=== PATIENT | female | born 1990 | race African-American/Black ===

== ENCOUNTER 2017-01-26 06:55 | Inpatient (IN) | payer OTHER ==
--- NOTE | ~2017-01-26 | DS ---
Unit #: [id number] #: [id number] Patient: ADOLFO RILEY [id number] [facility] [address] [place] [address] [id number] MR#: [id number] NAME: ADOLFO RILEY ROOM: [facility] Age: 26 Sex: F Admission Date: 01/26/2017 : 1990 Discharge Date: 01/30/2017 Attending Physician: Mark Carbone M.D. Primary Care Physician: Generic Doctor Not In System DISCHARGE SUMMARY REASON FOR ADMISSION Suicidal ideation and overdose. DIAGNOSTIC STUDIES LABORATORY RESULTS: Unremarkable. HOSPITAL COURSE The patient was admitted to inpatient unit on 01/26/2017 and discharged on 01/30/2017. The patient was treated on the inpatient unit with chemical dependency group, psychoeducation, psychotherapy, and structured milieu. The patient was responsive to treatment, showed improvement in mood and affect. Subsequently, the patient was discharged with a plan to follow up in outpatient program. DISCHARGE MEDICATIONS Desyrel 50 mg at bedtime for sleep, Risperdal 2 mg at bedtime for psychosis and mood stabilization, Depakote 500 mg at bedtime for depression, and Depakote 500 mg b.i.d. for mood stabilization. DISCHARGE DIAGNOSES Psychiatric: Bipolar mood disorder, recurrent, severe, depressed with psychotic feature, F31.9. Secondary diagnosis: Deferred. Medical diagnosis: Recent overdose of Geodon. Stressors: Psychosocial stressors. DISCHARGE INSTRUCTIONS The patient to follow up in outpatient clinic as per health and social care teacher. CONDITION ON DISCHARGE The patient was pleasant and cooperative. Denied any psychotic symptom or any suicidal ideation. PROGNOSIS Guarded. DIET AND ACTIVITY As tolerated. Unit #: [id number] #: [id number] Patient: ADOLFO RILEY Dictated by... Jaxson Brito/austin TD: 01/30/2017 21:02 JOB #: [id number] DISCHARGE SUMMARY Page 1 of 1 X Mark Carbone MD DISCHARGE SUMMARY
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
--- NOTE | ~2017-01-26 | PN ---
Unit #: [id number] #: [id number] Patient: ADOLFO RILEY [id number] [facility] [address] [place] [address] [id number] MR#: [id number] NAME: ADOLFO RILEY ROOM: P256 Age: 26 Sex: F Admission Date: 01/26/2017 : 1990 Attending Physician: Mark Carbone M.D. Admitting Physician: Mark Carbone M.D. Primary Care Physician: Generic Doctor Not In System [facility] PROGRESS NOTES DATE 01/29/2017 DISCUSSION Ms. Barnes is a 26-year-old female, seen on 01/29/2017. The patient interviewed, chart reviewed, and obtained information from the nursing staff. The patient reports that she was on Depakote and would like to go on that medication, help with mood stabilization. The patient denied any thoughts of harming self or others, denied any psychotic symptoms. REVIEW OF SYSTEMS Complete review of systems unremarkable. MENTAL STATUS EXAMINATION General appearance: Patient dressed casually. Attention span and concentration, fair. Oriented in time, place, and person. Mood and affect, sad and dysphoric. Speech, monotone. Thought process, concrete. The patient denied any thoughts of harming self or others. Recent and remote memory, poor. Insight and judgment, poor. DIAGNOSIS Bipolar mood disorder, NOS. ASSESSMENT/PLAN Advised to continue with the current combination of Zoloft, Risperdal, and trazodone, advised Depakote 500 mg b.i.d., if needed consider further adjustment of medication. Dictated by... Jaxson Brito/vincenzo TD: 01/31/2017 05:49 JOB #: [id number] Unit #: [id number] #: [id number] Patient: ADOLFO RILEY [facility] PROGRESS NOTES Page 1 of 1 X Mark Carbone MD PROGRESS NOTE
--- NOTE | ~2017-01-26 | HP ---
Unit #: [id number] #: [id number] Patient: ADOLOF RILEY [id number] [facility] [address] [place] [address] [id number] MR#: [id number] NAME: ADOLFO RILEY ROOM: P256 Age: 26 Sex: F Admission Date: 01/26/2017 : 1990 Attending Physician: Mark Carbone M.D. Admitting Physician: Mark Carbone M.D. Primary Care Physician: Generic Doctor Not In System HISTORY AND PHYSICAL HISTORY OF PRESENT ILLNESS Adolfo is a 26 year old admitted to [address] [place] [address] with depression and after an alleged overdose of Geodon. She was treated in a local emergency room and then transferred to [facility] for psychiatric care. PAST MEDICAL HISTORY Obesity. PAST SURGICAL HISTORY Nothing reported. ALLERGIES Latex. SOCIAL HISTORY It is unclear if she smokes or uses alcohol. She does have a history of illicit drug use to include marijuana and cocaine. FAMILY HISTORY Medically not known. REVIEW OF SYSTEMS She does not answer questions appropriately. CURRENT MEDICATIONS 1. Milk of Magnesia p.r.n. 2. Maalox p.r.n. 3. Tylenol p.r.n. PHYSICAL EXAMINATION GENERAL: Alert, obese, in no apparent distress. VITAL SIGNS: Blood pressure 132/90, heart rate 72, respirations 16, temperature 98.6. WEIGHT: 170. HEIGHT: 5 feet 0 inches. SKIN: Warm and dry without rash or lesion. HEENT: Normocephalic. TMs not viewed. Oral and nasal passages clear. Conjunctivae clear. PERRLA. EOMs intact. NECK: Supple without lymphadenopathy or thyromegaly. HEART: Regular rate and rhythm without murmur. LUNGS: Clear. ABDOMEN: Soft, nontender. : Not done. Unit #: [id number] #: [id number] Patient: ADOLFO RILEY EXTREMITIES: No evidence of cyanosis, clubbing or edema. Moves all without focal deficit. NEUROLOGICAL: Unable to complete extended exam. She does move all extremities without focal deficit. Hand performance improvement consultant is equal and gait is normal. IMPRESSION Psychiatric admission. RECOMMENDATIONS PSYCHIATRIC: Per psychiatrist. MEDICAL: See no contraindications to participate in facility's activities. MEDICAL PROGNOSIS Good. MEDICAL CONDITION Stable. Dictated by... Georgina Bynum P.A.-C. for Jaxson Peterson/vinay TD: 01/26/2017 18:03 JOB #: [id number] HISTORY AND PHYSICAL Page 1 of 1 X Georgina Bynum X HISTORY AND PHYSICAL
--- NOTE | ~2017-01-26 | PN ---
Unit #: [id number] #: [id number] Patient: ADOLFO RILEY [id number] [facility] [address] [place] [address] [id number] I MR#: [id number] NAME: ADOLFO RILEY ROOM: P256 Age: 26 Sex: F Admission Date: 01/26/2017 : 1990 Attending Physician: Mark Carbone M.D. Admitting Physician: Jaxson Brito PROGRESS NOTES DATE OF SERVICE: 01/28/2017 DISCUSSION Ms. Daniels is a 26-year-old female. The patient interviewed, chart reviewed, and obtained information from nursing staff. The patient was compliant and cooperative. Mood was sad, dysphoric, but able to contract for safety. The patient reports that she is feeling ready to go. Vital signs stable; temperature 98.6, pulse 74, and blood pressure 147/104. Complete review of systems unremarkable. MENTAL STATUS EXAMINATION General appearance, the patient dressed casually. Attention span and concentration, fair. Oriented in place and person. Mood and affect, labile. Speech, regular rate. Thought process, goal directed. The patient denied any thoughts of harming self or others, but somewhat guarded. Denied any hallucination. Recent and remote memory, poor. Insight and judgment, poor. DIAGNOSIS Bipolar mood disorder, not otherwise specified. ASSESSMENT AND PLAN Advised to start the patient on Risperdal 2 mg at bedtime, Zoloft 100 mg daily, and trazodone 50 mg at bedtime. Dictated by... Jaxson Brito/austin TD: 01/30/2017 01:22 JOB #: [id number] Unit #: [id number] #: [id number] Patient: ADOLFO RILEY NITANANCY PROGRESS NOTES Page 1 of 1 X Mark Carbone MD PROGRESS NOTE
--- NOTE | ~2017-01-26 | CO ---
Unit #: [id number] #: [id number] Patient: ADOLFO RILEY [id number] [facility] [address] [place] [address] [id number] MR#: [id number] NAME: ADOLFO RILEY ROOM: P256 Age: 26 Sex: F Admission Date: 01/26/2017 : 1990 Attending Physician: Mark Carbone M.D. Consultation Date: 01/29/2017 CONSULTATION REPORT ORDERING PROVIDER Dr. Carbone. REASON FOR CONSULT HSV infection. SUBJECTIVE The patient reports that she has had herpes in her genitalia prior. She is having now prodromal symptoms of tingling and usually takes acyclovir for this. OBJECTIVE Vaginal examination was deferred. ASSESSMENT Herpes simplex virus. PLAN Start the patient back on acyclovir. Dictated by... Jeferson Jeffers/austin TD: 01/30/2017 01:39 JOB #: [id number] CONSULTATION REPORT Page 1 of 1 X CHELO JACOME APRN CONSULTATION REPORT
[2017-01-29 11:36] LABS: URINE APPEARANCE CLEAR; URINE BILIRUBIN NEG (NEG); URINE BLOOD 1+ (NEG); URINE COLOR YELLOW; URINE GLUCOSE NEG (NEG); URINE KETONE NEG (NEG); URINE LEUKOCYTE ESTERASE NEG (NEG); URINE NITRATE NEG (NEG); URINE PROTEIN NEG (NEG); URINE SPECIFIC GRAVITY 1.019 (1.003-1.035); URINE UROBILINOGEN 0.2 MG/DL (NEG)
[2017-01-29 11:41] LABS: URINE BACTERIA AUWI 1+ (NEGATIVE); URINE SQUAMOUS EPITHELIAL CELL OCC /[HPF]; UWBCS1 AUWI 0-2 (0-5)
== END 2017-01-30 10:40 | DRG 885 ==
LOC: P2L 12:32
PROVIDERS: Psychiatry & Neurology Psychiatry
DX: F31.5 Bipolar disorder, current episode depressed, severe, with psychotic features (principal); E66.9 Obesity, unspecified; Z91.040 Latex allergy status
CPT/HCPCS: 81003; 84703